=== PATIENT | female | born 1940 | race Caucasian/White ===

== ENCOUNTER 2021-03-08 20:08 | Emergency (ER) | payer SELFPAY ==
--- NOTE | ~2021-03-08 | XR_ITS ---
EXAMINATION: XR chest 1V portable DATE: 03/08/2021 20:40 INDICATION: Chest pain. TECHNIQUE: A single frontal view of the chest was obtained. COMPARISON: None. FINDINGS: There is no pneumonia, pleural effusion, or pneumothorax. The heart size is normal. There i s a large hiatal hernia. There is a right subclavian port with tip in superior vena cava. IMPRESSION: 1. Large hiatal hernia. Reviewed, dictated and finalized at location A. IMPRESSION: 1. Large hiatal hernia.
--- NOTE | 2021-03-08 20:13 | ED.GENADULT ---
HPI - General Adult General Chief complaint: Chest Pain Stated complaint: AMB Source: patient Mode of arrival: EMS Limitations: no limitations History of Present Illness HPI narrative: Nubia is a very pleasant 80F with a PMH of COPD, DMII, and multiple Myeloma that presented to the ED with chest pain by EMS. She ate dinner and had stabbing chest pain under her left breast. It is constant and doesn't change with activity. She denies any nausea, vomiting, lightheadedness, or SOB. She has not had this before. She was given aspirin en route via EMS. Related Data Home Medications Medication Instructions Recorded Confirmed Lactobac. rhamnosus GG-inulin 1 cap PO DAILY 03/08/21 03/08/21 [[facility]] aspirin [Aspir-81] 81 mg PO DAILY 03/08/21 03/08/21 cranberry fruit 500 mg PO TID 03/08/21 03/08/21 fenofibrate 160 mg PO DAILY 03/08/21 03/08/21 fluoxetine 20 mg PO DAILY 03/08/21 03/08/21 levothyroxine 50 mcg PO DAILY 03/08/21 03/08/21 mirtazapine 15 mg PO HS 03/08/21 03/08/21 multivitamin with minerals [Vision 1 tablet PO DAILY 03/08/21 03/08/21 Multivitamin] psyllium husk [Fiber-Caps 0.52 g PO DAILY 03/08/21 03/08/21 (psyllium husk)] Allergies Allergy/AdvReac Type Severity Reaction Status Date / Time amoxicillin Allergy Unknown Verified 03/08/21 20:55 Review of Systems Constitutional: Constitutional: Reports no additional constitutional complaints Eyes: Eyes: Reports no additional eye complaints ENT: Reports system reviewed and no additional complaints, except as documented Cardiovascular: Cardiovascular: Reports as per HPI Respiratory: Respiratory: Reports no additional respiratory complaints Gastrointestinal: Gastrointestinal: Reports no additional gastrointestinal complaints Genitourinary: Genitourinary: Reports no additional female genitourinary complaints Musculoskeletal: Musculoskeletal: Reports no additional musculoskeletal complaints Integumentary/Breasts: Skin/Breast: Reports system reviewed and no additional complaints, except as docu Neurologic: Reports system reviewed and no additional complaints, except as documented Psychiatric: Psychiatric: Reports no additional psychiatric complaints Endocrine: Endocrine: Reports no additional endocrine complaints Hematologic/Lymphatic: Hematologic/Lymphatic: Reports no additional hematologic/lymphatic complaints Allergic/Immunologic: Allergic/Immunologic: Reports no additional allergic/immunologic complaints Exam Const: General: no acute distress and alert Orientation/consciousness: patient oriented x3 Limitations: No altered mental status HENMT: Head: normal to inspection Other: atraumatic Eyes: Conjunctivae: conjunctivae normal Pupils: Equal, round and reactive pupils present Neck: Neck: normal visual inspection Chest: Chest palpation & inspection: normal inspection of the chest Other: Tenderness over the costochondral joints Resp: Effort & Inspection: normal respiratory effort, not labored and not tachypneic Other: prolonged expiratory phase Cardio: Rate: regular rate Rhythm: regular rhythm GI: Inspection: non-distended GI Palp: Yes Soft to palpation, No Guarding due to palpation present (GI) and No Rigid due to palpation Other: TTP in the epigastric region Skin: General skin exam: normal color Neuro: General: patient oriented x3 and moves all extremities Extrem: General: normal to inspection Psych: Mental Status: mental status grossly normal Course Course Emergency Course: Ordered EKG, labs, CXR, and nitro. EKG showed NSR with a rate of 64, left axis deviation, and no ectopy CP went down to a 2. She was given a nitro and it went down to a 1. EXAMINATION: XR chest 1V portable DATE: 03/08/2021 20:40 INDICATION: Chest pain. TECHNIQUE: A single frontal view of the chest was obtained. COMPARISON: None. FINDINGS: There is no pneumonia, pleural effusion, or pneumothorax. The heart size is normal. T
--- NOTE | 2021-03-08 20:15 | ECG_ITS ---
Measurements Intervals [place] Rate: 64 P: 5 [place]: 189 QRS: -54 QRSD: 104 T: 78 QT: 385 QTc: 397 Interpretive Statements SINUS RHYTHM LEFT AXIS DEVIATION VOLTAGE CRITERIA FOR LVH POOR R WAVE PROGRESSION, ANTERIOR LEADS BORDERLINE ST-T WAVE ABNORMALITY- HIGH LATERAL LEADS BASELINE ARTIFACT- I, II, III, AVR, AVL, AVF, V1-V6 BORDERLINE ECG Electronically Signed On 03-09-2021 8:37:51 CDT by Edwin Manuel D.O.
[2021-03-08 20:31] LABS: Hematocrit 25.6 % (35.0-42.0); Hemoglobin 7.8 g/dL (11.7-13.8); Mean Corpuscular HGB Conc 30.5 g/dL (32.0-36.0); Mean Corpuscular Hemoglobin 25.4 pg (27.0-31.0); Mean Corpuscular Volume 83.4 fL (78.0-102.0); Mean Platelet Volume 8.4 fl (9.2-11.8); Platelet Count Result 290 K/mm3 (150-420); Red Blood Count 3.07 M/mm3 (4.20-5.40); Red Cell Distribution Width 19.1 % (11.6-14.4); White Blood Count 4.5 K/mm3 (4.8-10.8)
[2021-03-08 20:44] LABS: Prothrombin Time 10.3 Seconds (9.50-12.10)
[2021-03-08] MEDS: NITROGLYCERIN SL 0.4 MG TABLET SUBLINGUAL (20:47)
--- NOTE | 2021-03-08 20:48 | PC.NURSE ---
2045 NITRO #1 GIVEN B/P 133/66 PULSE 89
[2021-03-08 20:49] VITALS: BP 123/73; PULSE 83; RESP 20; TEMP 36.8; O2SAT 97
[2021-03-08 20:53] LABS: Alanine Aminotransferase 18 U/L (14-59); Albumin Level 3.2 g/dL (3.4-5.0); Alkaline Phosphatase 35 U/L (46-116); Anion Gap 10 mmol/L (8-16); Aspartate Amino Transferase 12 U/L (15-37); Bilirubin,Total 0.1 mg/dL (0.00-1.00); Blood Urea Nitrogen 42 mg/dL (7-18); Calcium 8.7 mg/dL (8.5-10.1); Carbon Dioxide 26 mmol/L (21-32); Chloride 106 mmol/L (98-108); Estimated CRCL calculation 25 ml/min; Estimated Glomerular Filt Rate 34; Glucose 118 mg/dL (70-99); Lipase 295 U/L (73-393); NT Pro B Type Natriuretic Pept 371 pg/mL (0-450); Osmolality Calculated 305 mOsm/kg (285-295); Sodium 142 mmol/L (136-145); Troponin I 8.7 ng/L (0.00-60.4)
[2021-03-08 20:56] LABS: Band Neutrophils Percent 0 % (0-6); Basophils Absolute Manual 0.04 K/mm3 (0-0.1); Basophils Percent Manual 1 % (0-1); Eosinophils Absolute Manual 0.54 K/mm3 (0.02-0.5); Eosinophils Percent Manual 12 % (1-6); Lymphocytes Absolute Manual 1.48 K/mm3 (1.1-4.5); Lymphocytes Percent Manual 33 % (18-44); Monocytes Absolute Manual 0.49 K/mm3 (0.1-0.90); Monocytes Percent Manual 11 % (3-9); Neutrophils Absolute Manual 1.93 K/mm3 (1.7-7.2); Neutrophils Percent Manual 43 % (46-73); Platelet Estimate Adequate (Adequate)
[2021-03-08] MEDS: MAG HYDROX/ALUMINUM HYD/SIMETH 30 ML, PHENobarb/HYOSCY/ATROPINE/SCOP 32.4 MG, LIDOCAINE... PO (21:06)
[2021-03-08 22:15] VITALS: BP 142/88; PULSE 89; RESP 20; TEMP 36.6; O2SAT 95
== END 2021-03-08 22:16 | disposition home or self-care (01) ==
PROVIDERS: Emergency Provider Family Medicine; PCP Physician Assistant
DX: R07.9 Chest pain, unspecified (principal); K21.9 Gastro-esophageal reflux disease without esophagitis; J44.9 Chronic obstructive pulmonary disease, unspecified; E11.9 Type 2 diabetes mellitus without complications
CPT/HCPCS: 36415; 71045; 80053; 83690; 83880; 84484; 85025; 85610; 93005; 99283; 99284; A9270